=== PATIENT | male | born 1955 | race Hispanic/Latino ===

== ENCOUNTER → 2019-01-02 | Outpatient (CLI) | payer BC ==
--- NOTE | 2019-01-02 13:01 | Diagnostic Imaging Report ---
TECHNIQUE: Magnetic resonance imaging of the LEFT SHOULDER was performed WITHOUT injected contrast. HISTORY: ROTATOR CUFF TEAR LEFT SHOULDER, fell COMPARISON: None available. FINDINGS: MUSCLES AND TENDONS: Rotator Cuff: Tendons: Supraspinatus and Infraspinatus: A focal high-grade tear of the anterior supraspinatus, extending to the bursal surface, but not definitively to the articular surface. Teres Minor: Intact Subscapularis: Low-grade partial-thickness intrasubstance tearing of the distal, superior tendon. Muscles: No focal muscle atrophy. Biceps Tendon: The long head of the biceps tendon is intact and within the intertubercular groove. GLENOHUMERAL JOINT: Glenoid Labrum: Mild diffuse degenerative tearing/fraying, most notably the posterior superior labrum. Articular Cartilage: Low-grade diffuse erosion. Joint Fluid: Trace effusion. ACROMIOCLAVICULAR JOINT: Severe hypertrophic degenerative changes of the acromioclavicular joint. Synovitis and trace effusion. BONE: Mild lateral downsloping of the acromion. No focal or infiltrative bone marrow replacing abnormality. No acute fracture. SOFT TISSUES: Trace fluid in the subacromial/subdeltoid bursa. IMPRESSION: 1. Focal high-grade tear involving the anterior fibers of the supraspinatus tendon. 2. Low-grade partial-thickness intrasubstance tearing of the distal, superior subscapularis tendon. 3. 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 4. Mild degenerative changes of the glenohumeral joint, including mild degenerative tearing of the labrum. 5. Mild subacromial/subdeltoid bursitis. Signed by: Dr. Ammon Rowe D.O., M.M.M. on 01/02/2019 12:57 PM
== END ==
LOC: MRI 07:29
PROVIDERS: ATTEND Specialist
DX: M75.102 Unspecified rotator cuff tear or rupture of left shoulder, not specified as traumatic (principal)

== ENCOUNTER → 2019-04-29 | Day surgery (SDC) | payer BC ==
[2019-04-24 09:59] LABS: ANION GAP 16.3 mmol/L (8-16); BLOOD UREA NITROGEN 22 mg/dL (7-26); BUN/CREATININE RATIO 22 (6-25); CALCIUM 10.2 mg/dL (8.4-10.2); CARBON DIOXIDE 28 mmol/L (22-29); CHLORIDE 100 mmol/L (98-107); CREATININE, SERUM 0.99 mg/dL (0.72-1.25); EST GLOMERULAR FILTRATION RATE > 60 ML/MIN (60-); GLUCOSE 117 mg/dL (74-118); POTASSIUM 3.3 mmol/L (3.5-5.1); SODIUM 141 mmol/L (136-145)
[~2019-04-29] MED LIST: ALLEGRA ALLERGY60 MG PO; ASPIRIN81 MG PO; CEFAZOLIN SOD 1 GM/NS 50ML 100 ML IV ONE; CHLORTHALIDONE25 MG PO; CRESTOR10 MG PO; DEXAMETHASONE SOD PHOS INJ 4 MG/ML VIAL ONE; EPINEPHRINE 1 MG/ML 30ML VIAL ONE; FENTANYL CITRATE/PF 100MCG/2 ML INJ ONE; GLYCOPYRROLATE INJ 1MG/ 5 ML SYR ONE; LIDOCAINE 2% /EPINEPHRINE 20 ML SDV INJ ONE; LIDOCAINE HCL 2% LOCAL INJ 5 ML SDV VIAL INJ ONE; MIDAZOLAM HCL 2 MG/2 ML VIAL ONE; NEOSTIGMINE 5 MG/5ML SYR ONE; ONDANSETRON HCL INJ 2MG/ML 2ML 2 MG/ML VIAL ONE; PROPOFOL IV EMULSION 10 MG/ML 20 ML VIAL ONE; ROCURONIUM BROMIDE 10 MG/ML 5ML VIAL ONE; ROPIVACAINE 0.5% 5 MG/ML 30 ML SDV ONE; SEVOFLURANE INHAL SOLN 250 ML PEN BTL ONE
--- OUTSIDE RECORDS SUMMARY | 2019-04-29 05:52 | XMS REPORT ---
[facility] Address Unknown Phone Unavailable Care Team Providers Care Administrative Volunteer Name Role Phone MARIAN LUGO Unavailable Unavailable Problems This patient has no known problems. Allergies, Adverse Reactions, Alerts This patient has no known allergies or adverse reactions. Medications This patient has no known medications. Results Test Description Test Time Test Comments Text Results Atomic Results Result Comments MRI SHOULDER LEFT WO 2019-01-02 12:48:00 [facility] [address] [address] Patient Name: BERTA CHAPIN MR #: [id number] : 1955 Age/Sex: 63/M Req #: [id number] [facility] Physician: Ordered by: MARIAN LUGO MD Report #: [id number] Location: MRI Room/Bed: Procedure: [id number] MRI/MRI SHOULDER LEFT WO Exam Date: Exam Time: REPORT STATUS: Signed TECHNIQUE: Magnetic resonance imaging of the LEFT SHOULDER was performed WITHOUT injected contrast. HISTORY: ROTATOR CUFF TEAR LEFT SHOULDER, fell COMPARISON: None available. FINDINGS: MUSCLES AND TENDONS: Rotator Cuff: Tendons: Supraspinatus and Infraspinatus: A focal high-grade tear of the anterior supraspinatus, extending to the bursal surface, but not definitively to the articular surface. Teres Minor: Intact Subscapularis: Low-grade partial-thickness intrasubstance tearing of the distal, superior tendon. Muscles: No focal muscle atrophy. Biceps Tendon: The long head of the biceps tendon is intact and within the intertubercular groove. GLENOHUMERAL JOINT: Glenoid Labrum: Mild diffuse degenerative tearing/fraying, most notably the posterior superior labrum. Articular Cartilage: Low-grade diffuse erosion. Joint Fluid: Trace effusion. ACROMIOCLAVICULAR JOINT: Severe hypertrophic degenerative changes of the acromioclavicular joint. Synovitis and trace effusion. BON E: Mild lateral downsloping of the acromion. No focal or infiltrative bone marrow replacing abnormality. No acute fracture. SOFT TISSUES: Trace fluid in the subacromial/subdeltoid bursa. IMPRESSION: 1. Focal high-grade tear involving the anterior fibers of the supraspinatus tendon. 2. Low-grade partial-thickness intrasubstance tearing of the distal, superior subscapularis tendon. 3. 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 4. Mild degenerative changes of the glenohumeral joint, including mild degenerative tearing of the labrum. 5. Mild subacromial/subdeltoid bursitis. Signed by: Dr. Rcahel Rowe D.O., M.M.M. on 01/02/2019 12:57 PM Dictated By: RACHEL ROWE DO 1257 Transcribed By: [place] on 01/02/19 1257 COPY TO: MARIAN LUGO MD
[2019-04-29 10:46] VITALS: BP 133/82
--- NOTE | 2019-05-01 21:15 | Operative Report ---
DATE OF PROCEDURE: 04/29/2019 SURGEON: [place] Teixeira MD PREOPERATIVE DIAGNOSES: 1. Left shoulder rotator cuff tear. 2. Left shoulder acromioclavicular joint arthritis. POSTOPERATIVE DIAGNOSES: 1. Left shoulder rotator cuff tear. 2. Left shoulder synovitis. 3. Left shoulder partial biceps tendon tear. 4. Left shoulder acromioclavicular joint arthritis. OPERATION AND PROCEDURE PERFORMED: The patient underwent left shoulder examination under anesthesia, left shoulder arthroscopy, left shoulder debridement of synovitis, left shoulder debridement of a partial biceps tendon tear, left shoulder arthroscopic subacromial decompression and acromioplasty, left shoulder arthroscopic rotator cuff reconstruction, and left shoulder arthroscopic distal clavicle resection. 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 ANESTHESIA: General endotracheal intubation anesthesia. IV FLUIDS: Per the anesthesia record. BRIEF DESCRIPTION OF THE PATIENT'S OPERATIVE PROCEDURE: Mr. Valladares was taken to the operating room and placed in the supine position on the operating room table. Following induction of general anesthesia, the patient's table was converted to a beach chair type position. The left shoulder was examined under anesthesia. There were no gross abnormalities. Passive range of motion of the shoulder joint was full. There were no mechanical blocks to motion of the shoulder. There was no evidence of instability. The patient's shoulder was prepped and draped in the standard surgical fashion. Standard posterolateral and anterior portals were created without difficulty. The scope was placed in the shoulder joint atraumatically. Examination of the glenohumeral articulation demonstrated no significant evidence of chondromalacia. There were no loose bodies in the shoulder joint. The biceps was contained within the shoulder. There was generalized synovitis of the shoulder. There was fraying of the biceps tendon at its insertion into the glenoid labrum. A probe was placed in the shoulder joint. The labrum was probed and found to be firmly attached to the glenoid. There was an anterior leading edge tear of the rotator cuff. A shaver was placed in the shoulder joint. The synovitis was debrided. The partial biceps tendon injury was debrided. The rotator cuff was also debrided and the leading edge tear component was completed. The shaver was used to debride the insertion site to a bleeding bony bed. The shoulder was deflated with sterile normal saline. The scope was then transferred to the subacromial space. A lateral portal was created from an outside-in technique. Significant bursal inflammation was encountered in the subacromial space. A shaver was placed in the subacromial space and a bursectomy was performed. The rotator cuff tear was easily identified. An accessory anterolateral portal was created overlying the rotator cuff injury. The shaver was used to further debride the insertion site as well as the torn rotator cuff. A single triple loaded suture anchor was inserted into the greater tuberosity and the suture arms from that anchor were woven through the rotator cuff tissue. The rotator cuff tissue was then advanced and tied firmly over its normal insertion site. This resulted in repair of the rotator cuff tear. The coracoacromial ligament was resected. There was a downward sloping acromion. An acromioplasty was performed at this time. The shoulder was placed through range of motion and there was no impingement of the rotator cuff tissue into the acromion. Attention was turned to the distal clavicle and the acromioclavicular joint. The anterior portal was transferred into the subacromial space. The acromioclavicular joint was isolated. A 1 cm section of the distal clavicle was resected at this time. The scope was transferred to the anterior portal and the AC joint resection was thoroughly examined and found to be appropriate. The shoulder was inflated with sterile normal saline. The portal sites were closed and sterile dressings were applied. The patient was provided a shoulder immobilizer, awakened, and taken to the postanesthesia care unit in stable condition. MD ROBIN Kumari/NAGA /[id number]
== END | disposition home or self-care (01) ==
LOC: OR 05:22
PROVIDERS: ATTEND Specialist
DX: M75.112 Incomplete rotator cuff tear or rupture of left shoulder, not specified as traumatic (principal); M19.012 Primary osteoarthritis, left shoulder; M65.812 Other synovitis and tenosynovitis, left shoulder; S46.212A Strain of muscle, fascia and tendon of other parts of biceps, left arm, initial encounter; E78.5 Hyperlipidemia, unspecified; E11.9 Type 2 diabetes mellitus without complications; R03.0 Elevated blood-pressure reading, without diagnosis of hypertension; X58.XXXA Exposure to other specified factors, initial encounter; Z01.810 Encounter for preprocedural cardiovascular examination; Z01.812 Encounter for preprocedural laboratory examination; Z79.82 Long term (current) use of aspirin
CPT/HCPCS: 29824; 29826; 29827; 36415 ×2; 80048; 84132; 93005; J0690; J1100; J2001 ×2; J2250; J2405; J2704; J2795; J3010; J3490